=== PATIENT | female | born 1980 | race Caucasian/White ===

== ENCOUNTER 2016-05-20 00:35 | Emergency (ER) | payer OTHER ==
[~2016-05-20] VITALS: Ht 165.1 cm; Wt 77.1 kg
--- NOTE | 2016-05-20 02:31 | ED GI/GU/ABDOMINAL COMPLAINT ---
History of Present Illness General Chief Complaint: Female Urogenital Problems Stated Complaint: ? UTI Source: patient Exam Limitations: no limitations Vital Signs & Intake/Output Vital Signs & Intake/Output Vital Signs Date Time Temp Pulse Resp B/P Pulse O2 O2 Flow FiO2 Ox Delivery Rate 05/20 0157 98 Room Air 05/20 155 96.8 82 18 101/72 99 Room Air Allergies Uncoded Allergies: Allergy Other SEASONAL Med Allergies LAMICTAL ? Reconcile Medications Ciprofloxacin HCl (Cipro) 500 MG TABLET 1 TAB PO BID UTI Phenazopyridine HCl (Pyridium) 100 MG TABLET 1 TAB PO TID PAINFUL URINATION Triage Note: PT FROM HOME C/O UTI. PT STATES " I KNOW I HAVE A UTI I HAVE HAD THEM BEFORE AND THE PAIN WOKE ME UP AROUND MIDNIGHT WITH BURNING UPON URINATION AND I NOTICED SOME BLOOD IN MY URINE" AWAITING PROVIDER EVAL Triage Nurses Notes Reviewed? yes ? n Is pt currently ? No HPI: 35 yo woman h/o occasional uti, presents with urinary urgency, dysuria since tonight. No fever, chills, back pain, nausea, vomiting, diarrhea. She is otherwise well. Past History Travel History Traveled to [place] past 21 day No Medical History Any Pertinent Medical History? none Psychiatric: depression Surgical History Surgical History: none Psychosocial History What is your primary language German Tobacco Use: Current Daily Use Daily Tobacco Use Amount/Type: => 5 Cigarettes daily ETOH Use: occasional use Illicit Drug Use: denies illicit drug use Family History Hx Contributory? No Review of Systems Review of Systems Constitutional: Reports: no symptoms. EENTM: Reports: no symptoms. Respiratory: Reports: no symptoms. Cardiovascular: Reports: no symptoms. GI: Reports: no symptoms. Genitourinary: Reports: no symptoms. Musculoskeletal: Reports: no symptoms. Skin: Reports: no symptoms. Neurological/Psychological: Reports: no symptoms. Hematologic/Endocrine: Reports: no symptoms. Immunologic/Allergic: Reports: no symptoms. All Other Systems: Reviewed and Negative Physical Exam Physical Exam General Appearance: well developed/nourished, mild distress Head: atraumatic, normal appearance Eyes: Bilateral: normal appearance. Ears, Nose, Throat, Mouth: hearing grossly normal Neck: normal inspection, supple Respiratory: normal breath sounds, chest non-tender, no respiratory distress, quiet respiration, lungs clear Cardiovascular: regular rate/rhythm Gastrointestinal: normal bowel sounds, soft, non-tender, no organomegaly Back: normal inspection Extremities: normal range of motion Neurologic/Psych: no motor/sensory deficits, awake, alert, oriented x 3 Skin: intact, normal color, warm/dry Core Measures ACS in differential dx? No Severe Sepsis Present: No Septic Shock Present: No Progress Differential Diagnosis: uti vs other. Plan of Care: Orders Procedure Date/time Status URINE 05/20 121 Complete URINALYSIS 05/20 121 Complete Laboratory Tests 05/20/16 0150: Urine Color YEL, Urine Clarity TURBD H, Urine pH 6.0, Ur Specific [place] >= 1.030, Urine Protein 100 H, Urine Ketones TRACE H, Urine Nitrite POS H, Urine Bilirubin NEG@ICTO, Urine Urobilinogen 1.0, Ur Leukocyte Esterase SMALL H, Ur Microscopic SEDIMENT EXAMINED, Urine RBC >75 H, Urine WBC > 75 H, Ur Epithelial Cells RARE, Urine Hemoglobin LARGE H, Urine Glucose NEG, Urine Test NEGATIVE Initial ED EKG: none Departure Departure Disposition: HOME OR SELF CARE Condition: Stable Clinical Impression Primary Impression: UTI (urinary tract infection) Referrals: UNKNOWN (PCP/Family) Departure Forms: Customer Survey General Discharge Information Prescriptions: Current Visit Scripts Ciprofloxacin HCl (Cipro) 1 TAB PO BID #14 TAB Phenazopyridine HCl (Pyridium) 1 TAB PO TID #12 TAB
[2016-05-20] MEDS ORDERED: PYRIDIUM100 M1 PO (02:39)
[2016-05-20] MEDS ORDERED: CIPRO500 M1 PO (02:39)
[2016-05-20 02:59] VITALS: BP 103/76
== END 2016-05-20 03:00 ==
LOC: ERH 00:35
DX: N39.0 Urinary tract infection, site not specified (principal)
CPT/HCPCS: 81001; 81025; 87086